=== PATIENT | female | born 1960 | race Two or more races ===

== ENCOUNTER 2023-01-24 09:42 | Outpatient (CLI) | payer OTHER | END 2023-01-24 09:47 | disposition home or self-care (01) | LOC: RAD 09:42 | DX: R06.00 Dyspnea, unspecified (principal); Z68.39 Body mass index [BMI] 39.0-39.9, adult; J98.11 Atelectasis; J45.40 Moderate persistent asthma, uncomplicated; G47.33 Obstructive sleep apnea (adult) (pediatric); Q79.1 Other congenital malformations of diaphragm; Z85.3 Personal history of malignant neoplasm of breast ==

== ENCOUNTER 2023-01-28 08:04 | Outpatient (CLI) | payer OTHER | END 2023-01-28 08:21 | disposition home or self-care (01) | LOC: RX STUDY 08:04 | PROVIDERS: ATTEND Internal Medicine Pulmonary Disease | DX: R06.00 Dyspnea, unspecified (principal); Z68.39 Body mass index [BMI] 39.0-39.9, adult; J98.11 Atelectasis; J45.40 Moderate persistent asthma, uncomplicated; G47.33 Obstructive sleep apnea (adult) (pediatric); Q79.1 Other congenital malformations of diaphragm; Z85.3 Personal history of malignant neoplasm of breast ==